=== PATIENT | male | born 1985 | race Caucasian/White ===

== ENCOUNTER 2017-05-20 09:39 | Emergency (ER) | payer OTHER ==
--- NOTE | 2017-05-20 10:51 | UC ---
Eye Complaint HPI - HPI Summary HPI Summary: 31 year old male presents with complains of right red eye with discharge. - History of Current Complaint Chief Complaint: UCEye Stated Complaint: BILATERAL EYE Time Seen by Provider: 05/20/17 10:51 Hx Obtained From: Patient Onset/Duration: Sudden Onset Timing: Constant Severity Initially: Moderate Severity Currently: Moderate Pain Scale Used: 0-10 Numeric - 5 Character: Throbbing Aggravating Factor(s): Nothing Alleviating Factor(s): Nothing Associated Signs And Symptoms: Positive: Negative - Allergies/Home Medications Allergies/Adverse Reactions: Allergies Allergy/AdvReac Type Severity Reaction Status Date / Time No Known Allergies Allergy Verified 05/20/17 10:53 PMH/Surg Hx/FS Hx/Imm Hx Previously Healthy: Yes - Surgical History Surgical History: None - Family History Known Family History: Positive: None - Social History Substance Use Type: None Review of Systems Constitutional: Negative Skin: Negative Eyes: Negative ENT: Negative Respiratory: Negative Cardiovascular: Negative Gastrointestinal: Negative Genitourinary: Negative Motor: Negative Neurovascular: Negative Musculoskeletal: Negative Neurological: Negative Psychological: Negative All Other Systems Reviewed And Are Negative: Yes Physical Exam Triage Information Reviewed: Yes Vital Signs Reviewed: Yes Eye Exam: Normal ENT: Positive: Pharyngeal erythema, Nasal congestion, Nasal drainage, Sinus tenderness Dental Exam: Normal Neck exam: Normal Neck: Positive: 1 Respiratory Exam: Normal Cardiovascular Exam: Normal Abdominal Exam: Normal Musculoskeletal Exam: Normal Neurological Exam: Normal Psychological Exam: Normal Skin Exam: Normal Eye Complaint Course/Dx - Differential Dx/Diagnosis Provider Diagnoses: rigth eye conjunctivitis Discharge - Discharge Plan Condition: Stable Disposition: HOME Prescriptions: Tobramycin/Dexameth OPTH.SUSP* [Tobradex 0.3-0.1%*] 1 drop RIGHT EYE Q6H #1 btl Patient Education Materials: Conjunctivitis (ED) Referrals: Neal Alcocer MD [Medical Doctor] - No Primary Care Phys,NOPCP [Primary Care Provider] -
[2017-05-20 10:54] VITALS: BP 123/74
== END 2017-05-20 11:07 | disposition home or self-care (01) ==
LOC: UCCORT 09:39
DX: H10.31 Unspecified acute conjunctivitis, right eye (principal)
CPT/HCPCS: 99202; G0463

== ENCOUNTER 2017-10-28 18:42 | Emergency (ER) | payer OTHER ==
--- NOTE | 2017-10-28 19:07 | UC ---
Truncal Trauma HPI - HPI Summary HPI Summary: 32 yo male presents with left rib pain. 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 Since that time has had a constant dull ache that is sharp with movement and deep breaths. He has been taking advil for the pain with little relief. Denies fever, chills, SOB, [place], chest pain, n/v. - History Of Current Complaint Stated Complaint: LEFT SIDE RIB PAIN Time Seen by Provider: 10/28/17 19:07 Hx Obtained From: Patient Onset/Duration: Sudden Onset Severity Initially: Moderate Severity Currently: Moderate Pain Intensity: 6 Pain Scale Used: 0-10 Numeric - Allergies/Home Medications Allergies/Adverse Reactions: Allergies Allergy/AdvReac Type Severity Reaction Status Date / Time No Known Allergies Allergy Verified 10/28/17 19:11 Home Medications: Home Medications Albuterol HFA INHALER* [Ventolin HFA Inhaler*] 1 - 2 puff INH Q4H PRN 10/28/17 [ History Confirmed 10/28/17] Budesonide/Formote 160/4.5(NF) [Symbicort 160/4.5 (NF)] 2 puff INH BID 10/28/17 [History Confirmed 10/28/17] Fluticasone NASAL SPRAY 50MCG* [Flonase NASAL SPRAY 50MCG*] 2 spray BOTH NARES DAILY 10/28/17 [History Confirmed 10/28/17] Ibuprofen TAB* [Advil TAB*] 800 mg PO Q8H PRN 10/28/17 [History Confirmed ] PMH/Surg Hx/FS Hx/Imm Hx Respiratory History: Asthma - Surgical History Surgical History: None - Family History Known Family History: Positive: None - Social History Occupation: Employed Full-time Lives: With Family Alcohol Use: Rare Substance Use Type: None Smoking Status (MU): Never Smoked Tobacco Review of Systems Constitutional: Negative Skin: Negative Respiratory: Negative Cardiovascular: Negative Neurovascular: Negative Musculoskeletal: Other: - Left rib pain Neurological: Negative Psychological: Negative All Other Systems Reviewed And Are Negative: Yes Physical Exam - Summary Physical Exam Summary: GENERAL: NAD. WDWN. No pain distress. SKIN: No rashes, sores, lesions, or open wounds. NECK: Supple. FROM. Nontender. No lymphadenopathy. CHEST: CTAB. No r/r/w. No accessory muscle use. Breathing comfortably and in no distress. CV: RRR. Without m/r/g. Pulses intact. Brisk cap refill. MSK: TTP over anterior and midaxillary left ribs 7-9. Pain increased with UE flexion. B/L UE strength 5/5 and FROM. NEURO: Alert. CN II-XII grossly intact. PSYCH: Age appropriate behavior. Triage Information Reviewed: Yes Vital Signs: Vital Signs: Temp Pulse Resp BP Pulse Ox 99.1 F 64 16 138/67 99 10/28/17 19:10/28/17 19:10/28/17 19:10/28/17 19:10/28/17 19:09 Truncal Trauma Course/Dx - Course Course Of Treatment: XR: IMPRESSION: NO EVIDENCE FOR FRACTURE. Suspect rib contusion vs intercoastal muscle strain. Advised to continue ibuprofen - pt declined any stronger medications or toradol IM today. - Differential Dx/Diagnosis Provider Diagnoses: Rib contusion left Discharge - Sign-Out/Discharge Documenting (check all that apply): Discharge/Admit/Transfer - Discharge Plan Condition: Stable Disposition: HOME Patient Education Materials: Rib Contusion (ED) Referrals: No Primary Care Phys,NOPCP [Primary Care Provider] - Additional Instructions: If you develop a fever, shortness of breath, chest pain, new or worsening symptoms - please call your PCP or go to the ED. Your blood pressure was mildly elevated at todays visit. Please see your primary provider within 4 weeks for recheck and re-evaluation. - Billing Disposition and Condition Condition: STABLE Disposition: Home
[2017-10-28 19:17] VITALS: BP 138/67
--- NOTE | 2017-10-28 19:45 | RAD ---
INDICATION: Left rib injury. COMPARISON: There are no prior studies available for comparison. TECHNIQUE: 3 views of the left ribs and dual-energy PA views of the chest were obtained. FINDINGS: No fracture or significant focal osseous abnormality is seen. The heart is within normal limits in size. The lungs are clear. There is no evidence for pneumothorax or pleural effusion. IMPRESSION: NO EVIDENCE FOR FRACTURE.
== END 2017-10-28 20:02 | disposition home or self-care (01) ==
LOC: UCCORT 18:42
DX: S20.212A Contusion of left front wall of thorax, initial encounter (principal); X58.XXXA Exposure to other specified factors, initial encounter; Y92.9 Unspecified place or not applicable
CPT/HCPCS: 99211; G0463